=== PATIENT | female | born 1950 | race Caucasian/White ===

== ENCOUNTER 2020-10-17 09:37 | Outpatient (CLI) | payer MEDICARE, BC ==
[2020-10-17 15:48] LABS: ALBUMIN 4.2 g/dL (3.2-5.5); ALBUMIN/GLOBULIN RATIO 1.6 (1.0-2.2); BILIRUBIN,TOTAL 0.8 mg/dL (0.2-1.0); CALCIUM 8.8 mg/dL (8.5-10.3); CREATININE 0.5 mg/dL (0.4-1.0); POTASSIUM 3.2 mmol/L (3.5-5.0); TOTAL PROTEIN 6.8 g/dL (6.7-8.2)
== END 2020-10-17 09:38 | disposition home or self-care (01) ==
LOC: LAB.S 09:37
PROVIDERS: ATTEND Family Medicine
DX: E23.0 Hypopituitarism (principal)
CPT/HCPCS: 36415; 80053

== ENCOUNTER 2023-06-30 08:00 | Outpatient (CLI) | payer MEDICARE, BC | END 2023-06-30 23:59 | disposition home or self-care (01) | LOC: LAB.N 08:00 | PROVIDERS: ATTEND Registered Nurse | DX: R30.0 Dysuria (principal) | CPT/HCPCS: 87077; 87086; 87181 ==

== ENCOUNTER 2023-10-07 12:16 | Outpatient (CLI) | payer MEDICARE, BC | END 2023-10-07 12:17 | disposition home or self-care (01) | LOC: LAB.S 12:16 | PROVIDERS: ATTEND Internal Medicine | DX: Z53.9 Procedure and treatment not carried out, unspecified reason (principal) ==

== ENCOUNTER 2023-10-07 14:26 | Outpatient (CLI) | payer MEDICARE, BC, MEDICAID ==
[2023-10-07 14:58] LABS: CALCIUM, IONIZED 1.14 mmol/L (1.15-1.33); VBG PH 7.342 (7.31-7.41)
[2023-10-07 15:59] LABS: CALCIUM 9.5 mg/dL (8.5-10.3); CREATININE 0.8 mg/dL (0.6-1.3); MAGNESIUM 2.1 mg/dL (1.7-2.3); POTASSIUM 4.7 mmol/L (3.5-4.5)
== END 2023-10-07 14:27 | disposition home or self-care (01) ==
LOC: LAB 14:26
PROVIDERS: ATTEND Internal Medicine
DX: E23.0 Hypopituitarism (principal)
CPT/HCPCS: 36415; 80048; 82330; 83735

== ENCOUNTER 2023-11-12 08:00 | Outpatient (CLI) | payer MEDICARE, BC | END 2023-11-12 23:59 | disposition home or self-care (01) | LOC: LAB.S 08:00 | PROVIDERS: ATTEND Registered Nurse | DX: R30.0 Dysuria (principal) | CPT/HCPCS: 87077; 87086; 87181 ==